=== PATIENT | female | born 1970 | race Two or more races ===

== ENCOUNTER 2016-09-03 03:10 | Emergency (ER) | payer SELFPAY ==
[~2016-09-03] VITALS: Ht 157.5 cm; Wt 72.6 kg
[2016-09-03 04:00] LABS: Urine Bilirubin Negative (Negative); Urine Color Yellow (Yellow); Urine Glucose Normal (Normal); Urine Ketone Negative (Negative); Urine Mucus FEW (None Seen); Urine Nitrite Negative (Negative); Urine RBC 2 /hpf (0 - 4); Urine Squamous Epithelial Cell FEW /hpf (<5); Urine Urobilinogen Normal (Negative)
[2016-09-03 04:01] LABS: Urine Blood 1+ /uL (Negative)
[2016-09-03 04:13] LABS: Basophils # (auto) 0 uL; Basophils % (auto) 0.3 % (0.0-2.0); CONDITION AutoValidated; Eosinophils # (auto) 0.1 uL; Eosinophils % (auto) 0.9 % (0.0-7.0); Hematocrit 38.3 % (36.0-46.0); Hemoglobin 12.8 g/dL (12.2-16.2); Lymphocytes # (auto) 2.2 uL; Lymphocytes % (auto) 18.8 % (10.0-50.0); Mean Corpuscular Hemoglobin 31.1 pg (28.0-32.0); Mean Corpuscular Hgb Conc. 33.5 g/dL (32.0-36.0); Mean Corpuscular Volume 92.7 fL (80.0-100.0); Mean Platelet Volume 9.3 fL (7.4-10.4); Monocytes # (auto) 0.8 uL; Monocytes % (auto) 6.6 % (0.0-12.0); Neutrophils # (auto) 8.8 uL; Neutrophils % (auto) 73.4 % (37.0-80.0); Platelet Count (auto) 231 10^3/uL (140-450); White Blood Cell 11.9 10^3/uL (4.4-10.8)
[2016-09-03 04:24] LABS: Albumin 3.6 g/dL (3.4-5.0); Calcium 8.6 mg/dL (8.5-10.1); Potassium 3.5 mmol/L (3.5-5.1)
[2016-09-03 04:28] LABS: BUN/Creatinine Ratio 17.9; Bilirubin, Total 0.6 mg/dL (0.2-1.0); Total Protein 7.9 g/dL (6.4-8.2)
[2016-09-03 07:45] VITALS: BP 140/67
[2016-09-03] MEDS ORDERED: HYDROcodone-ACET 5/325MG TAB PO ONE (08:00)
[2016-09-03] MEDS ORDERED: ceFAZolin IM 1GM/2.5ML STERILE WATER IM ONE (08:45)
== END 2016-09-03 09:02 | disposition home or self-care (01) ==
LOC: ER 03:10
DX: J32.3 Chronic sphenoidal sinusitis (principal); B69.0 Cysticercosis of central nervous system
CPT/HCPCS: 36415; 70450; 80053; 81001; 84702; 85025; J0690

== ENCOUNTER 2021-06-21 21:32 | Emergency (ER) | payer SELFPAY ==
[~2021-06-21] VITALS: Ht 165.1 cm; Wt 74.8 kg
[2021-06-22] MEDS ORDERED: DexAMETHasone SOD PHOS 10MG/1ML VIAL INJ PO ONE (00:15)
[2021-06-22 01:48] VITALS: BP 135/79
== END 2021-06-22 01:52 | disposition home or self-care (01) ==
LOC: ER 21:35
DX: J03.90 Acute tonsillitis, unspecified (principal)
CPT/HCPCS: 87070; 87880; 99283; J1100